=== PATIENT | male | born 1955 | race Caucasian/White ===

== ENCOUNTER 2016-11-05 10:41 | Day surgery (SDC) | payer MEDICAID ==
[~2016-11-05] VITALS: Ht 185.4 cm; Wt 78.2 kg
[2016-11-05 11:59] LABS: BASOPHILS 0.6 % (0.0-2.0); EOSINOPHILS 5.8 % (0-7); HEMATOCRIT 37.4 % (42.0-54.0); IMMATURE GRANULOCYTES 0.1 % (0-5); LYMPHOCYTES 13.8 % (15-50); MCHC 34.8 g/dL (31.0-37.0); MCV 83.3 fL (80.0-100.0); MONOCYTES 12.8 % (2-11); NEUTROPHILS 66.9 % (40-80); PLATELET COUNT 138 10x3/uL (130-400); RBC 4.49 10x6/uL (4.20-6.10); RDW 13.9 % (11.5-14.5); WBC 7.9 10x3/uL (4.8-10.8)
[2016-11-05 12:07] LABS: INR 1.19 (0.85-1.17)
[2016-11-05 12:08] LABS: APTT 36.1 SECONDS (22.8-39.4)
[2016-11-05 12:14] LABS: ALBUMIN 2.8 g/dL (3.4-5.0); ALKALINE PHOSPHATASE 136 U/L (46-116); ALT (SGPT) 20 U/L (10-68); CALC OSMOLALITY 269 mosm/kg (275-300); CALCIUM 8.8 mg/dL (8.5-10.1); CARBON DIOXIDE 30.2 mmol/L (21.0-32.0); CHLORIDE - SERUM 98 mmol/L (98-107); CREATININE - SERUM 0.8 mg/dL (0.6-1.3); GLUCOSE 97 mg/dL (74-106); POTASSIUM - SERUM 3.9 mmol/L (3.5-5.1); PROTEIN - SERUM 6.3 g/dL (6.4-8.2); SODIUM 135 mmol/L (136-145); UREA NITROGEN 13 mg/dL (7-18); eGFR NON AFRICAN AMERICAN > 90 mL/min (90-120)
[2016-11-05] MEDS ORDERED: FUROSEMIDE10 MG/M1 IV (12:42)
[2016-11-05] MEDS ORDERED: ALDACTONE100 MG PO (12:44)
[2016-11-05] MEDS ORDERED: LOPRESSOR25 MG PO (12:45)
[2016-11-05] MEDS ORDERED: FLUTICASONE PRO16 GM NASAL (12:45)
[2016-11-05] MEDS ORDERED: OMEPRAZOLE20 M1 PO (12:45)
[2016-11-05] MEDS ORDERED: TRAZODONE HCL50 MG PO (12:47)
[2016-11-05 12:53] VITALS: BP 105/60; Ht 185.4 cm; Wt 78.2 kg
--- NOTE | 2016-11-05 14:02 | NUR ---
1402 BANDS X'S 2
--- NOTE | 2016-11-05 15:15 | NUR ---
DISCHARGE INSTRUCTIONS REVIEWED WITH PATIENT AND SPOUSE. PATIENT VERY UNHAPPY ABOUT INSTRUCTIONS RELATED TO LIQUID AND SOFT DIET, INSTRUCTED PATIENT IN THE IMPORTANCE OF THESE AND THE REASONING.
--- NOTE | 2016-11-05 15:20 | NUR ---
PATIENT DISCHARGED HOME VIA WHEELCHAIR TO PRIVATE VEHICLE WITH SPOUSE
--- NOTE | 2016-11-13 12:04 | OP ---
PATIENT NAME: SARKIS UGALDE MEDICAL RECORD: [id number] :51 LOCATION:[facility] ADMISSION DATE: SURGEON: JUNIOR MAZARIEGOS DO DATE OF OPERATION: 11/05/2016 PROCEDURE: EGD with variceal banding. ENDOSCOPIST: Junior Mazariegos DO. SCOPE: Olympus video gastroscope. MEDICATIONS: Propofol 250 mg IV and lidocaine 100 mg IV per anesthesia. INDICATION FOR TIVA: Decompensated cirrhosis. INDICATION FOR PROCEDURE: Variceal screening in the setting of decompensated cirrhosis. FINDINGS: Informed consent was given. The patient was made comfortable with the above medications. After reaching an adequate level of sedation by slow IV push, the patient was placed on his left side. The endoscope was then advanced under direct visualization through the mouth to the second portion of the duodenum. The esophagus was noted to have long segment Finnegan esophagus starting at approximately 25 cm down to the GE junction, which was approximately 38 cm. No biopsies were taken as the patient is extremely high risk for bleeding in the setting of decompensated cirrhosis with an elevated INR and severe friability. He was noted to have grade III to IV esophageal varices in the middle and distal third of the esophagus with 4 columns present. There were no bleeding stigmata, but there was oozing of blood from the endoscope passing through the tissue of the esophagus as well as the stomach and small bowel. In the stomach, there was severe diffuse portal hypertensive gastropathy. There were no other lesions identified. The scope was advanced down into the duodenum where the bulb appeared to have some congestion of duodenitis, but the second portion of the duodenum appeared normal. Scope was then withdrawn from the patient and the [employer] speed ply bander was placed on the scope. It was then advanced back down to the distal esophagus where 2 bands were placed successfully for variceal ligation. The scope was then withdrawn from the patient. The patient tolerated the procedure well and there were no complications. IMPRESSION: 1. Grade III to IV esophageal varices banded times 2. 2. Finnegan esophagus, long segment. No biopsies taken. 3. Hiatal hernia involving the cardia, sliding type. 4. Portal hypertensive gastropathy, diffusely throughout the stomach. RECOMMENDATIONS: 1. Discharge home when recovery parameters are met. 2. New diet to consist liquids for 48 hours followed by soft diet for 48 hours followed by regular diet. 3. Return for repeat upper endoscopy with band ligation in 3-4 weeks. 4. Continue current medications. TRANSINT:[id number] Voice Confirmation ID: [id number] DOCUMENT ID: [id number] OPERATIVE REPORT [id number] SARKIS UGALDE NATHAN A DO at 1204 CC: [id number] DICTATION DATE: 11/05/16 1413 TIRE STRIPPER: 11/05/16 1711 [facility] 11/05/[address] [id number]
== END 2016-11-05 15:20 | disposition home or self-care (01) ==
LOC: D.OPS 10:41
PROVIDERS: Anesthesiology
DX: K74.69 Other cirrhosis of liver (principal); I85.10 Secondary esophageal varices without bleeding; K22.70 Barrett's esophagus without dysplasia; K44.9 Diaphragmatic hernia without obstruction or gangrene; K76.6 Portal hypertension; K31.89 Other diseases of stomach and duodenum

== ENCOUNTER 2016-11-14 12:51 | Emergency (ER) | payer MEDICAID ==
[2016-11-05 12:53] VITALS: BMI 22.7
[~2016-11-14 12:51] MED LIST: ALDACTONE100 MG PO; FLUTICASONE PRO16 GM NASAL; FUROSEMIDE10 MG/M1 IV; LOPRESSOR25 MG PO; OMEPRAZOLE20 M1 PO; TRAZODONE HCL50 MG PO
[2016-11-14 13:40] LABS: BASOPHILS 0.5 % (0.0-2.0); EOSINOPHILS 5.2 % (0-7); HEMATOCRIT 35.9 % (42.0-54.0); HEMOGLOBIN 12.2 g/dL (13.5-17.5); IMMATURE GRANULOCYTES 0.3 % (0-5); LYMPHOCYTES 12.9 % (15-50); MCH 28.8 pg (26.0-34.0); MCV 84.7 fL (80.0-100.0); MEAN PLATELET VOLUME 9.2 fL (7.4-10.4); NEUTROPHILS 69.1 % (40-80); PLATELET COUNT 161 10x3/uL (130-400); RBC 4.24 10x6/uL (4.20-6.10); RDW 15.2 % (11.5-14.5); WBC 9.6 10x3/uL (4.8-10.8)
[2016-11-14 13:53] LABS: INR 1.26 (0.85-1.17); PROTIME 15.7 SECONDS (11.6-15.0)
[2016-11-14 13:54] LABS: APTT 33.9 SECONDS (22.8-39.4)
[2016-11-14 13:55] LABS: ALKALINE PHOSPHATASE 119 U/L (46-116); ALT (SGPT) 24 U/L (10-68); BILIRUBIN - TOTAL 1.03 mg/dL (0.2-1.3); CALC OSMOLALITY 270 mosm/kg (275-300); CALCIUM 8.9 mg/dL (8.5-10.1); CARBON DIOXIDE 25.3 mmol/L (21.0-32.0); CHLORIDE - SERUM 99 mmol/L (98-107); CREATININE - SERUM 0.6 mg/dL (0.6-1.3); GLUCOSE 99 mg/dL (74-106); POTASSIUM - SERUM 4.5 mmol/L (3.5-5.1); PROTEIN - SERUM 6.1 g/dL (6.4-8.2); SODIUM 133 mmol/L (136-145); UREA NITROGEN 26 mg/dL (7-18); eGFR NON AFRICAN AMERICAN > 90 mL/min (90-120)
== END 2016-11-14 16:32 | disposition home or self-care (01) ==
LOC: D.ER 12:51
PROVIDERS: Emergency Medicine
DX: K92.2 Gastrointestinal hemorrhage, unspecified (principal)

== ENCOUNTER 2016-11-28 12:10 | Day surgery (SDC) | payer MEDICAID ==
[~2016-11-28] VITALS: Ht 185.4 cm; Wt 58.6 kg
[2016-11-28 14:10] VITALS: Ht 185.4 cm; Wt 58.6 kg
[2016-11-28 14:54] LABS: BASOPHILS 0.7 % (0.0-2.0); EOSINOPHILS 5.5 % (0-7); HEMATOCRIT 34.5 % (42.0-54.0); IMMATURE GRANULOCYTES 0.3 % (0-5); LYMPHOCYTES 15.4 % (15-50); MCHC 34.8 g/dL (31.0-37.0); MCV 86.3 fL (80.0-100.0); MEAN PLATELET VOLUME 8.9 fL (7.4-10.4); MONOCYTES 12.8 % (2-11); NEUTROPHILS 65.3 % (40-80); PLATELET COUNT 129 10x3/uL (130-400); WBC 6.7 10x3/uL (4.8-10.8)
[2016-11-28 15:00] LABS: APTT 34.2 SECONDS (22.8-39.4); INR 1.23 (0.85-1.17); PROTIME 15.4 SECONDS (11.6-15.0)
[2016-11-28 15:18] LABS: ALBUMIN 2.9 g/dL (3.4-5.0); ALKALINE PHOSPHATASE 116 U/L (46-116); ALT (SGPT) 20 U/L (10-68); BILIRUBIN - TOTAL 1.43 mg/dL (0.2-1.3); CALC OSMOLALITY 265 mosm/kg (275-300); CALCIUM 8.8 mg/dL (8.5-10.1); CARBON DIOXIDE 24.2 mmol/L (21.0-32.0); CHLORIDE - SERUM 99 mmol/L (98-107); CREATININE - SERUM 0.8 mg/dL (0.6-1.3); GLUCOSE 87 mg/dL (74-106); POTASSIUM - SERUM 4.5 mmol/L (3.5-5.1); PROTEIN - SERUM 6.2 g/dL (6.4-8.2); SODIUM 133 mmol/L (136-145); UREA NITROGEN 14 mg/dL (7-18); eGFR NON AFRICAN AMERICAN > 90 mL/min (90-120)
--- NOTE | 2016-11-28 15:35 | NUR ---
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
--- NOTE | 2016-12-04 10:50 | OP ---
PATIENT NAME: SARKIS UGALDE MEDICAL RECORD: [id number] :51 LOCATION:[facility] ADMISSION DATE: SURGEON: JUNIOR ANDUJAR DO DATE OF OPERATION: 11/28/2016 PROCEDURE: EGD with biopsies and esophageal variceal banding. SCOPE: Olympus video gastroscope. MEDICATIONS: Propofol 450 mg IV per anesthesia. INDICATIONS FOR PROCEDURE: Surveillance of esophageal varices. FINDINGS: Informed consent was given. The patient was made comfortable with the above medication. After reaching an adequate level of sedation by slow IV push, the patient was placed on his left side. The endoscope was then advanced under direct visualization through the mouth to the second portion of the duodenum. The esophagus again was noted to have a long segment Finnegan esophagus from approximately 25 cm to approximately 38 cm. Two biopsies were taken in the proximal esophagus to confirm the diagnosis. Within that Finnegan's segment at approximately 32-34 cm from the incisors, there were multiple telangiectasias, which were extremely friable. Further beyond that site, the esophageal varices were again visualized. These were grade III to IV varices with one column that was larger than the others. This was banded times 1. Again, in the stomach, there was evidence of severe diffuse portal hypertensive gastropathy. On retroflexion, there was a small sliding hiatal hernia. The scope was advanced into the duodenum, which appeared normal prior to withdrawal. The patient tolerated the procedure well and there were no complications. ESTIMATED BLOOD LOSS: Less than 5 cc. IMPRESSION: 1. Grade III to IV esophageal varices, banded times 1. 2. Finnegan esophagus, long segment. Two biopsies taken to confirm the diagnosis. 3. Sliding type hiatal hernia involving the cardia. 4. Portal hypertensive gastropathy diffusely throughout the stomach with some telangiectasias noted in the antrum as well. RECOMMENDATIONS: 1. Discharge home when recovery parameters are met. 2. Continue proton pump inhibitor therapy. 3. Diet to consist of liquids for 48 hours followed by a soft diet for 48 hours followed by regular diet. 4. Return for repeat upper endoscopy with band ligation in 3-4 weeks. TRANSINT:[id number] Voice Confirmation ID: [id number] DOCUMENT ID: [id number] OPERATIVE REPORT [id number] SARKIS UGALDE JUNIOR ANDUJAR DO at 1050 CC: [id number] DICTATION DATE: 11/28/16 1550 CLEANING TECHNICIAN: 11/28/16 2148 [facility] 11/28/16 [facility] [address] [place] [place] [id number]
== END 2016-11-28 16:55 | disposition home or self-care (01) ==
LOC: D.OPS 12:10
PROVIDERS: Anesthesiology
DX: K22.70 Barrett's esophagus without dysplasia (principal); K74.60 Unspecified cirrhosis of liver; I85.10 Secondary esophageal varices without bleeding; I10 Essential (primary) hypertension; K21.9 Gastro-esophageal reflux disease without esophagitis; Z86.010 Personal history of colon polyps; K44.9 Diaphragmatic hernia without obstruction or gangrene; K76.6 Portal hypertension; K31.89 Other diseases of stomach and duodenum